=== PATIENT | male | born 1950 | race Caucasian/White ===

== ENCOUNTER 2020-03-11 20:55 | Emergency (ER) | payer OTHER ==
[2020-03-11] MEDS ORDERED: Ketorolac 30 MG/ML SDV IM ONE (23:12)
--- NOTE | 2020-03-11 23:13 | EDM.PDOC ---
ED HPI GENERAL MEDICAL PROBLEM - General Chief Complaint: Back Pain or Injury Stated Complaint: SEVERE BACK PAIN, [id number] Time Seen by Provider: 03/11/20 23:07 Source of Information: Reports: Patient History Limitations: Reports: No Limitations - History of Present Illness INITIAL COMMENTS - FREE TEXT/NARRATIVE: Comes to the emergency department today with complaints of severe left lower back pain. This patient has a history of L4-L5 disc degeneration. He has had some pain in there in the past but it has not bothered him for quite some time. Over the past 5 days every time he goes to have a bowel movement and use toilet paper he has severe pain in his left lower back. Is slowly been getting worse over the past 5 to 6 days to the point where it is there all the time. He has had no recent falls or trauma or injury to his back. He has no change in his bowel or bladder. The pain is just paraspinal in the left lower region. He has no pain down his leg. He has no paresthesias of his lower extremities and he has no change in the functionality of his lower extremities. He has been taking aspirin for this pain with minimal improvement in the last dose of aspirin was on Thursday. Left Posterior Back Pain Score (Numeric/FACES): 5 Past Medical History HEENT History: Reports: Glaucoma, Hard of Hearing, Impaired Vision Cardiovascular History: Reports: Aneurysm Musculoskeletal History: Reports: Arthritis, Back Pain, Chronic Neurological History: Reports: Brain Injury - Past Surgical History HEENT Surgical History: Reports: Eye Surgery Neurological Surgical History: Reports: None Social & Family History - Family History Family Medical History: Noncontributory - Tobacco Use Smoking Status *Q: Never Smoker - Caffeine Use Caffeine Use: Reports: Tea - Recreational Drug Use Recreational Drug Use: No ED ROS GENERAL - Review of Systems Review Of Systems: Comprehensive ROS is negative, except as noted in HPI. ED EXAM,LOWER BACK PAIN/INJURY - Physical Exam Exam: See Below Exam Limited By: No Limitations General Appearance: Alert, WD/WN, No Apparent Distress Respiratory/Chest: No Respiratory Distress Cardiovascular: Normal Peripheral Pulses GI/Abdominal: Normal Bowel Sounds, Soft, Non-Tender (Male) Exam: Deferred Rectal (Males) Exam: Deferred Back Exam: Decreased Range of Motion, Paraspinal Tenderness (L4-L5 region no signs of trauma. ), Other (Positive straight leg raise on the left not on the right. ). No: CVA Tenderness (L), CVA Tenderness (R), Muscle Spasm, Vertebral Tenderness Extremities: Normal Inspection, Non-Tender, Normal Capillary Refill Neurological: Alert, Normal Mood/Affect, Normal Dorsiflexion, Normal Plantar Flexion, Normal Reflexes, No Motor/Sensory Deficits, Oriented x 3 DTR - Lower Extremities: 2+: Knee (R), Knee (L), Ankle (R), Ankle (L) Psychiatric: Normal Affect, Normal Mood Skin Exam: Warm, Dry, Intact, Normal Color, No Rash Lymphatic: No Adenopathy Course - Vital Signs Last Recorded V/S: Last Vital Signs Temp 97.7 F 03/11/20 21:14 Pulse 56 L 03/11/20 21:14 Resp 18 03/11/20 21:14 BP 155/74 H 03/11/20 21:14 Pulse Ox 97 03/11/20 21:14 - Orders/Labs/Meds Meds: Medications Discontinued Medications Generic Name Dose Route Start Last Admin Trade Name Gregorio PRN Reason Stop Dose Admin Ketorolac Tromethamine 15 mg 03/11/20 23:12 03/11/20 23:29 Toradol IM 03/11/20 23:13 15 mg ONETIME ONE Administration Orphenadrine Citrate 60 mg 03/11/20 23:12 03/11/20 23:28 Norflex IM 03/11/20 23:13 60 mg ONETIME ONE Administration Prednisone 40 mg 03/11/20 23:15 03/11/20 23:32 Prednisone PO 03/11/20 23:16 40 mg ONETIME ONE Administration - Re-Assessments/Exams Free Text/Narrative Re-Assessment/Exam: 03/11/20 23:15 Ketorolac 15mg IM Norflex 60mg IM Prednisone 40mg PO. after the above therapy the patient felt much better he could move much easier and with much less pain. We will discharge him home on Flexeril and a short course of steroids. I would also like him to use NSAIDs such as ibuprofen instead of the aspirin. Consideration for physical therapy to help with his acute low back pain. I do not feel any imaging is going to really assist this at this time as he has no traumatic injury falls. Discharge directions as below are explained to the patient he was comfortable with this plan and his questions are answered. Departure - Departure Time of Disposition: 23:51 Disposition: Home, Self-Care 01 Clinical Impression: Lower back pain Qualifiers: Chronicity: acute Back pain laterality: left Sciatica presence: without sciatica Qualified Code(s): M54.5 - Low back pain - Discharge Information Instructions: Back Exercises, [id number], Pain Medicine Instructions, [id number] Forms: ED Department Discharge Additional Instructions: Tylenol and or Ibuprofen as needed for pain. Prednisone 40mg daily for the next 5 days. First dose given in the ED and RX given to the patient. If pain not controlled with above. Flexeril, 1 tablet three times a day as needed for pain. Caution sedation RX given to the patient. Consider Physical therapy is not improving rapidly over the next week. Return to the ED if new or worsening symptoms. Follow up with PCP in an week if any concerns. Sepsis Event Note (ED) - Evaluation Sepsis Screening Result: No Definite Risk
[2020-03-11] MEDS ORDERED: predniSONE 20 MG Tab PO ONE (23:15)
== END 2020-03-12 00:03 | disposition home or self-care (01) ==
LOC: DL.ED 20:55
DX: M54.5 Low back pain (principal)
CPT/HCPCS: 96372; 99283; J1885; J2360; J7512